=== PATIENT | female | born 1960 | race Caucasian/White ===

== ENCOUNTER → 2018-03-24 | Outpatient (CLI) | payer BC | LOC: COL.PUL 12:37 | DX: J45.909 Unspecified asthma, uncomplicated (principal); Z87.891 Personal history of nicotine dependence | CPT/HCPCS: J7674 ==

== ENCOUNTER → 2022-01-30 | Outpatient (CLI) | payer BC | LOC: COL.LAB 12:08 | DX: J30.1 Allergic rhinitis due to pollen (principal) ==